=== PATIENT | female | born 2000 | race African-American/Black ===

== ENCOUNTER 2022-04-12 18:10 | Emergency (ER) | payer OTHER ==
[~2022-04-12] VITALS: Ht 167.6 cm; Wt 77.0 kg
[2022-04-12 18:12] VITALS: BP 134/86
== END 2022-04-12 19:03 | disposition home or self-care (01) ==
LOC: ER 18:10
DX: S61.211A Laceration without foreign body of left index finger without damage to nail, initial encounter (principal); W26.0XXA Contact with knife, initial encounter; Y93.89 Activity, other specified; Y92.89 Other specified places as the place of occurrence of the external cause; Y99.8 Other external cause status
CPT/HCPCS: 12001; 99283